=== PATIENT | female | born 1980 | race African-American/Black ===

== ENCOUNTER 2017-02-13 09:35 | Emergency (ER) | payer SELFPAY ==
[2017-02-13] MEDS ORDERED: ALBUTEROL SULFATE 0.083% NEB 2.5 MG/3 ML AMPUL NEB ONE (10:48)
--- NOTE | 2017-02-13 11:34 | ER Document Report ---
HPI - HPI Patient complains to provider of: cough, congestion and shortness of breath. Onset: Last week Onset/Duration: Gradual Quality of pain: Achy Severity: Moderate Pain Level: 3 Context: Patient states she started out with upper respiratory symptoms which have now settled into her chest for the last 3-4 days. She states she has been running a fever and has a frequent, productive cough at times. Patient quit smoking 3 weeks ago. Associated Symptoms: Nonproductive cough, Productive cough, Fever, Sinus pain/ drainage, Shortness of breath Exacerbated by: Coughing, Deep breathing Relieved by: Denies Similar symptoms previously: Yes Recently seen / treated by doctor: No - ROS ROS below otherwise negative: Yes Systems Reviewed and Negative: Yes All other systems reviewed and negative - CONSTITUTIONAL Constitutional: REPORTS: Fever - EENT EENT: REPORTS: Congestion - NEURO Neurology: REPORTS: Headache - CARDIOVASCULAR Cardiovascular: REPORTS: Chest pain - Only with coughing and de - RESPIRATORY Respiratory: REPORTS: Trouble Breathing, Coughing - GASTROINTESTINAL Gastrointestinal: DENIES: Abdominal Pain - URINARY Urinary: DENIES: Dysuria - REPRODUCTIVE LMP: 01/31/17 Reproductive: DENIES: : - MUSCULOSKELETAL Musculoskeletal: DENIES: Extremity pain - DERM Skin Color: Normal Skin Problems: None Past Medical History - General Information source: Patient - Social History Smoking Status: Former Smoker - Quit 3 weeks ago Frequency of alcohol use: Rare Drug Abuse: None Lives with: Family Family History: None Patient has suicidal ideation: No Patient has homicidal ideation: No - Medical History Medical History: Negative Surgical Hx: Negative Past Surgical History: Reports: Hx Tubal Ligation - Immunizations Hx Diphtheria, Pertussis, Tetanus Vaccination: Yes Vertical Provider Document - CONSTITUTIONAL Agree With Documented VS: Yes Exam Limitations: No Limitations General Appearance: WD/WN, No Apparent Distress - INFECTION CONTROL TRAVEL OUTSIDE OF THE [place] IN LAST 30 DAYS: No - HEENT HEENT: Atraumatic, Normocephalic. negative: Pharyngeal Erythema Notes: TMs dull - NECK Neck: Normal Inspection, Supple - RESPIRATORY Respiratory: No Respiratory Distress, Wheezing - Mild expiratory O2 Sat by Pulse Oximetry: 98 - CARDIOVASCULAR Cardiovascular: Regular Rate, Regular Rhythm - GI/ABDOMEN Gastrointestinal: Abdomen Soft, Abdomen Non-Tender, Normal Bowel Sounds - MUSCULOSKELETAL/EXTREMETIES Musculoskeletal/Extremeties: AISHA ALVARADO - NEURO Level of Consciousness: Awake, Alert, Appropriate - DERM Integumentary: Warm, Dry Course - Re-evaluation Re-evalutation: 02/13/17 11:35 X-ray was negative and results were discussed with patient. Patient states she is able to breathe much easier after nebulizer treatment. No wheezing heard on auscultation after treatment 02/13/17 12:32 - Vital Signs Vital signs: Temp Pulse Resp BP Pulse Ox 98.3 F 106 H 16 110/80 98 02/13/17 09:39 02/13/17 09:39 02/13/17 09:39 02/13/17 09:39 02/13/17 09:39 Discharge - Discharge Clinical Impression: Bronchitis Condition: Good Disposition: HOME, SELF-CARE Additional Instructions: Meds as prescribed Albuterol inhaler 2 puffs every 4 hours for 2 days, then every 4 hours as needed for cough. [id number] cough cold medications for symptom relief Push fluids Tylenol or Motrin as needed for fever Did not begin smoking again. Follow-up with your doctor if not better in 2-3 days, or return if worsens. Prescriptions: Albuterol Sulfate [Proair HFA] 1 - 2 puff IH Q4 PRN #1 inhaler PRN Reason: Azithromycin [Zithromax 250 mg Tablet] 250 mg PO ASDIR #6 tablet Prednisone [Deltasone 10 mg Tablet] 10 mg PO ASDIR #21 tablet Forms: Return to Work
[2017-02-13 11:59] VITALS: BP 128/82
== END 2017-02-13 11:56 | disposition home or self-care (01) ==
LOC: ER 09:35
DX: J40 Bronchitis, not specified as acute or chronic (principal); R05 Cough; R07.89 Other chest pain; R50.9 Fever, unspecified; J34.89 Other specified disorders of nose and nasal sinuses; R51 Headache; R06.2 Wheezing; Z87.891 Personal history of nicotine dependence
CPT/HCPCS: 71020; 99283

== ENCOUNTER 2018-01-31 07:35 | Emergency (ER) | payer SELFPAY ==
[2018-01-31] MEDS ORDERED: DEXAMETHASONE SOD PHOS INJ 10 MG/1 ML VIAL IV ONE (08:00)
[2018-01-31] MEDS ORDERED: NORMAL SALINE 1000 ML 1,000 ML IV ONE (08:00)
[2018-01-31] MEDS ORDERED: CLINDAMYCIN 600 MG/D5W RTU 600 MG/50 ML RTUPB IV ONE (08:00)
[2018-01-31] MEDS ORDERED: KETOROLAC TROMETHAMINE INJ/PF 30 MG/1 ML SDV IV ONE (08:00)
[2018-01-31] MEDS ORDERED: ACETAMINOPHEN 325 MG TABLET PO ONE (08:03)
--- NOTE | 2018-01-31 08:07 | ER Document Report ---
HPI - HPI Patient complains to provider of: Sore throat Onset: Other - 6 days Onset/Duration: Worse Quality of pain: Achy Pain Level: 4 Context: Patient reports sore throat for the past 6 days. Patient states she started to develop swelling to the back of her throat and right side of her neck 4 days ago. Patient reports fever and chills. She does report recent exposure to strep throat. Associated Symptoms: Earache, Fever, Sore throat. denies: Nonproductive cough, Productive cough, Vomiting Exacerbated by: Denies Relieved by: Denies Similar symptoms previously: No Recently seen / treated by doctor: No - ROS ROS below otherwise negative: Yes Systems Reviewed and Negative: Yes All other systems reviewed and negative - CONSTITUTIONAL Constitutional: REPORTS: Fever, Chills - EENT EENT: REPORTS: Sore Throat, Ear Pain. DENIES: Eye problems - NEURO Neurology: REPORTS: Headache. DENIES: Weakness, Vision blurred, Dizzinesss / Vertigo - CARDIOVASCULAR Cardiovascular: DENIES: Chest pain - RESPIRATORY Respiratory: DENIES: Coughing - GASTROINTESTINAL Gastrointestinal: DENIES: Abdominal Pain, Patient vomiting, Black / Bloody Stools - URINARY Urinary: DENIES: Dysuria, Urgency, Frequency - REPRODUCTIVE Reproductive: DENIES: : - MUSCULOSKELETAL Musculoskeletal: REPORTS: Neck Pain. DENIES: Extremity pain - DERM Skin Color: Normal Skin Problems: None Past Medical History - General Information source: Patient - Social History Smoking Status: Former Smoker Chew tobacco use (# tins/day): No Frequency of alcohol use: Occasional Drug Abuse: None Occupation: None Family History: None Patient has suicidal ideation: No Patient has homicidal ideation: No - Medical History Medical History: Negative Renal/ Medical History: Denies: Hx Peritoneal Dialysis Past Surgical History: Reports: Hx Tubal Ligation - Immunizations Hx Diphtheria, Pertussis, Tetanus Vaccination: Yes Vertical Provider Document - CONSTITUTIONAL Agree With Documented VS: Yes Exam Limitations: No Limitations General Appearance: WD/WN, No Apparent Distress - INFECTION CONTROL TRAVEL OUTSIDE OF THE [place] IN LAST 30 DAYS: No - HEENT HEENT: Atraumatic, Normocephalic, Pharyngeal Tenderness, Pharyngeal Erythema. negative: Pharyngeal Exudate Notes: Patient with right peritonsillar erythema and swelling, no potential airway compromise. No trismus at this time. Voice is subtly muffled - NECK Neck: Lymphadenopathy-Right - RESPIRATORY Respiratory: Breath Sounds Normal, No Respiratory Distress - CARDIOVASCULAR Cardiovascular: Regular Rhythm, No Murmur, Tachycardia - BACK Back: Normal Inspection - MUSCULOSKELETAL/EXTREMETIES Musculoskeletal/Extremeties: AISHA ALVARADO - NEURO Level of Consciousness: Awake, Alert, Appropriate Motor/Sensory: No Motor Deficit - DERM Integumentary: Warm, Dry, No Rash Course - Re-evaluation Re-evalutation: 01/31/18 09:54 [facility] Staff Nurse left a message with Dr. Esquivel for return call. 01/31/18 10:[address] Esquivel, reviewed patient's diagnostic report. Advises giving patient Unasyn 3 g IV here and discharging her with Augmentin 875 p.o. twice daily. Advises having her follow-up with her primary doctor for recheck as well as obtaining an outpatient thyroid ultrasound. Reviewing her CT report and having concerns about a possible thyroid nodule. States that patient can follow-up with his office for further evaluation of thyroid. - Vital Signs Vital signs: Temp Pulse Resp BP Pulse Ox 100.5 F H 118 H 17 133/78 H 99 01/31/18 07:40 01/31/18 07:40 01/31/18 07:40 01/31/18 07:40 01/31/18 07:40 - Laboratory Result Diagrams: 01/31/18 08:27 01/31/18 08:27 Laboratory results interpreted by me: 01/31/18 10:32 Labs- Entire Visit 01/31/18 01/31/18 01/31/18 08:27 08:27 08:27 WBC 18.3 H RBC 4.24 Hgb 10.7 L Hct 33.4 L MCV 79 L MCH 25.2 L MCHC 31.9 L RDW 18.1 H Plt Count 354 Seg Neutrophils % 78.6 H Lymphocytes % 13.0 Monocytes % 7.5 Eosinophils % 0.3 Basophils % 0.6 Absolute Neutrophils 14.4 H Absolute Lymphocytes 2.4 Absolute Monocytes 1.4 Absolute Eosinophils 0.0 Absolute Basophils 0.1 Sodium 144.4 Potassium 3.6 Chloride 102 Carbon Dioxide 30 Anion Gap 12 BUN 5 L Creatinine 0.55 Est GFR ( Amer) > 60 Est GFR (Non-Af Amer) > 60 Glucose 95 Lactic Acid Calcium 9.9 Group A Strep Rapid POSITIVE 01/31/18 08:27 WBC RBC Hgb Hct MCV MCH MCHC RDW Plt Count Seg Neutrophils % Lymphocytes % Monocytes % Eosinophils % Basophils % Absolute Neutrophils Absolute Lymphocytes Absolute Monocytes Absolute Eosinophils Absolute Basophils Sodium Potassium Chloride Carbon Dioxide Anion Gap BUN Creatinine Est GFR ( Amer) Est GFR (Non-Af Amer) Glucose Lactic Acid 1.0 Calcium Group A Strep Rapid 01/31/18 18:44 Labs- Entire Visit 01/31/18 01/31/18 01/31/18 08:27 08:27 08:27 WBC 18.3 H RBC 4.24 Hgb 10.7 L Hct 33.4 L MCV 79 L MCH 25.2 L MCHC 31.9 L RDW 18.1 H Plt Count 354 Seg Neutrophils % 78.6 H Lymphocytes % 13.0 Monocytes % 7.5 Eosinophils % 0.3 Basophils % 0.6 Absolute Neutrophils 14.4 H Absolute Lymphocytes 2.4 Absolute Monocytes 1.4 Absolute Eosinophils 0.0 Absolute Basophils 0.1 Sodium 144.4 Potassium 3.6 Chloride 102 Carbon Dioxide 30 Anion Gap 12 BUN 5 L Creatinine 0.55 Est GFR ( Amer) > 60 Est GFR (Non-Af Amer) > 60 Glucose 95 Lactic Acid Calcium 9.9 Group A Strep Rapid POSITIVE 01/31/18 08:27 WBC RBC Hgb Hct MCV MCH MCHC RDW Plt Count Seg Neutrophils % Lymphocytes % Monocytes % Eosinophils % Basophils % Absolute Neutrophils Absolute Lymphocytes Absolute Monocytes Absolute Eosinophils Absolute Basophils Sodium Potassium Chloride Carbon Dioxide Anion Gap BUN Creatinine Est GFR ( Amer) Est GFR (Non-Af Amer) Glucose Lactic Acid 1.0 Calcium Group A Strep Rapid - Diagnostic Test Radiology reviewed: Reports reviewed Discharge - Discharge Clinical Impression: Strep throat, Peritonsillar cellulitis Condition: Stable Disposition: HOME, SELF-CARE Instructions: Augmentin ([facility]), IV Antibiotics ([facility]), Sore Throat ([facility]), Tonsillitis ([facility]) Additional Instructions: Return immediately for any new or worsening symptoms Followup with your primary care provider, call tomorrow to make a followup appointment Dr. Esquivel reviewed your CT scan and had concerns about a possible nodule on your thyroid, he recommends that you see a primary doctor for further evaluation of the thyroid gland, and states that he should have an outpatient thyroid ultrasound. Your primary doctor can order this test for you. Prescriptions: Amox Tr/Potassium Clavulanate [Augmentin 875-125 Tablet] 1 tab PO BID 10 Days tablet Naproxen [Naprosyn 250 Nmg Tablet] 1 tab PO BID #14 tablet Referrals: [facility] [Provider Group] - Follow up tomorrow [facility] [Provider Group] - Follow up as needed PAOLA ESQUIVEL DO [ASSOCIATE] - Follow up as needed
[2018-01-31 08:47] LABS: ABSOLUTE BASOPHILS # (AUTO) 0.1 10^3/uL (0.0-0.2); ABSOLUTE LYMPHOCYTES (AUTO) 2.4 10^3/uL (0.5-4.7); ABSOLUTE MONOCYTES (AUTO) 1.4 10^3/uL (0.1-1.4); ABSOLUTE NEUT (AUTO) 14.4 10^3/uL (1.7-8.2); BASOPHILS % (AUTO) 0.6 % (0-2); EOSINOPHILS % (AUTO) 0.3 % (0-6); HEMATOCRIT 33.4 % (36.0-47.0); HEMOGLOBIN 10.7 g/dL (12.0-15.5); MEAN CORPUSCULAR HEMOGLOBIN 25.2 pg (27.0-33.4); MEAN CORPUSCULAR HGB CONC 31.9 g/dL (32.0-36.0); MEAN CORPUSCULAR VOLUME 79 fl (80-97); MONOCYTES % (AUTO) 7.5 % (3-13); PLATELET COUNT 354 10^3/uL (150-450); RED BLOOD COUNT 4.24 10^6/uL (3.72-5.28); RED CELL DISTRIBUTION WIDTH 18.1 % (11.5-14.0); SEGMENTED NEUTROPHILS % (AUTO) 78.6 % (42-78); TOTAL CELLS COUNTED % (AUTO) 100 %; WHITE BLOOD COUNT 18.3 10^3/uL (4.0-10.5)
[2018-01-31 09:07] LABS: ANION GAP 12 (5-19); BLOOD UREA NITROGEN 5 mg/dL (7-20); CALCIUM 9.9 mg/dL (8.4-10.2); CARBON DIOXIDE 30 mmol/L (22-30); CHLORIDE 102 mmol/L (98-107); GLUCOSE 95 mg/dL (75-110); POTASSIUM 3.6 mmol/L (3.6-5.0); SODIUM 144.4 mmol/L (137-145)
--- NOTE | 2018-01-31 09:35 | RADIOLOGY REPORT (SQ) ---
EXAM DESCRIPTION: CT SOFT TISSUE NECK WITH COMPLETED DATE/TIME: 01/31/2018 9:15 am REASON FOR STUDY: sore throat, ?abscess COMPARISON: None. TECHNIQUE: Post IV contrasted scanning from skull base through lung apices with review of bone, soft tissue and lung windows. Reconstructed coronal and sagittal MPR images reviewed. All images stored on PACS. All CT scanners at this facility use dose modulation, iterative reconstruction, and/or weight based d osing when appropriate to reduce radiation dose to as low as reasonably achievable (ALARA). [facility]: Dose Right [facility]: CareDose [facility]: Dose Right [facility]: Teradose 4D [facility]: [employer] CONTRAST TYPE AND DOSE: contrast/concentration: Isovue 370.00 mg/ml; Total Contrast Delivered: 74.0 ml; Total Saline Delivered: 55.0 ml RENAL FUNCTION: None required. The patient is less than 50 years old. RADIATION DOSE: CT Rad equipment meets quality standard of care and radiation dose reduction techniq ues were employed. CTDIvol: 16.5 mGy. DLP: 454 mGy-cm. . LIMITATIONS: None. FINDINGS: SKULL BASE: Intact. MAJOR SALIVARY GLANDS: No solid or cystic masses. No inflammatory changes. LYMPHADENOPATHY: Enlarged level 1, 2, 3, 4, 5 nodes, with the largest right jugulodigastric 2.3 x 2.1 cm in AP by transverse diameter. MUCOSAL MASSES OR ASYMMETRY: Enlarged palatine tonsils resulting in mild narrowing of the nasopharynx . Tiny gas bubble to right of midline measuring about 5 mm image 19. LARYNX/CORDS: No abnormal findings. VASCULAR STRUCTURES: The major vessels are patent. LUNG APICES: Clear. BONES: Intact. THYROID: Normal size. No masses. PARANASAL SINUSES: Clear. OTHER: No other significant finding. IMPRESSION: Tonsillitis with mild narrowing of the posterior nasopharynx. Phlegmon or tiny abscess right posterior pharyngeal wall. TECHNICAL DOCUMENTATION: JOB ID: [id number] Quality ID # [id number]: Final reports with documentation of one or more dose reduction techniques (e.g., Au tomated exposure control, adjustment of the mA and/or kV according to patient size, use of iterative reconstruction technique) 2010 [employer]- All Rights Reserved Reading location - IP/workstation name: [facility]
[2018-01-31] MEDS ORDERED: AMPICILLIN SOD/SULBACTAM 3 GM VIAL IV ONE (10:31)
[2018-01-31 11:27] VITALS: BP 113/74
== END 2018-01-31 11:29 | disposition home or self-care (01) ==
LOC: ER 07:35
DX: J02.0 Streptococcal pharyngitis (principal); J36 Peritonsillar abscess; R50.9 Fever, unspecified; H92.01 Otalgia, right ear; Z87.891 Personal history of nicotine dependence; Z98.51 Tubal ligation status
CPT/HCPCS: 99284; 96375; 96365; 96367; 36415; 87040; 87880; 83605; 85025; 80048; 70491; J0295; J1885; J7030; J1100

== ENCOUNTER 2019-08-09 05:21 | Emergency (ER) | payer SELFPAY ==
[2019-08-09] MEDS ORDERED: AMPICILLIN SOD/SULBACTAM 3 GM VIAL IV ONE (06:26)
[2019-08-09] MEDS ORDERED: DEXAMETHASONE SOD PHOS INJ 10 MG/1 ML VIAL IV ONE (06:26)
--- NOTE | 2019-08-09 06:34 | ER Document Report ---
ED General - General Chief Complaint: Sore Throat Stated Complaint: SORE THROAT Time Seen by Provider: 08/09/19 06:13 TRAVEL OUTSIDE OF THE [place] IN LAST 30 DAYS: No - HPI Notes: Patient is a 38-year-old female who presents emergency department for evaluation of sore throat. She states she started to have a sore throat on Sunday. She had fevers, some mild ear pain. She stated that things seem to be improving over Sunday. Over the last 36 hours, her symptoms are worsened. Her pain is worsened. Her fevers returned. She complains of pain primarily in her throat and her right ear. It is worsened by swallowing, nothing seems to make it better. She denies any respiratory difficulties. She states she has had a minimal cough but feels as if this is drainage. No nausea or vomiting. She is still drinking fluids, still urinating normally. - Related Data Allergies/Adverse Reactions: No Known Allergies Allergy (Verified 02/13/17 09:39) Home Medications: None Past Medical History - General Information source: Patient - Social History Smoking Status: Former Smoker Frequency of alcohol use: None Family History: Reviewed & Not Pertinent, Malignancy - Prostate cancer Patient has suicidal ideation: No Patient has homicidal ideation: No Renal/ Medical History: Denies: Hx Peritoneal Dialysis Past Surgical History: Reports: Hx Tubal Ligation - Immunizations Hx Diphtheria, Pertussis, Tetanus Vaccination: Yes Review of Systems - Review of Systems Constitutional: See HPI EENT: See HPI Cardiovascular: No symptoms reported Respiratory: No symptoms reported Gastrointestinal: No symptoms reported Genitourinary: No symptoms reported Musculoskeletal: No symptoms reported Skin: No symptoms reported Neurological/Psychological: No symptoms reported Physical Exam - Vital signs Vitals: Temp Pulse Resp BP Pulse Ox 98.3 F 117 H 16 124/79 100 08/09/19 05:29 08/09/19 05:29 08/09/19 05:29 08/09/19 05:29 08/09/19 05:29 - Notes Notes: Is a pleasant 38-year-old female who appears her stated age in no acute distress. She is having a garbled voice, clear difficulty speaking, but no respiratory distress. It is painful, but she is able to handle her own secretions. Vital signs reviewed, please refer to chart. Head is normocephalic, atraumatic. Pupils equal round, reactive to light. Posterior pharynx reveals erythema and edema without clear asymmetry of the tonsillar pillars. Neck is supple without meningismus. Heart is regular rate and rhythm. Lungs are clear to auscultation bilaterally. Abdomen is soft, nontender, normoactive bowel sounds throughout. Extremities without cyanosis, clubbing. Posterior calves are nontender. Peripheral pulses are equal. Skin is warm and dry. Patient is awake, alert, neurological exam is nonfocal. Course - Re-evaluation Re-evalutation: 08/09/19 06:34 Patient presents the emergency department for evaluation. I am significantly concerned about the possibility of an abscess in this patient with garbled voice. Laboratory investigations and cultures were obtained. Rapid strep ordered. She is given IV fluids, Unasyn. She is sent for CT scan of the neck with contrast, we will continue to monitor. 08/09/19 09:40 Laboratory investigations revealed a significant leukocytosis. Cultures pending. Rapid strep negative, but culture pending as well. Patient is feeling significantly improved, her voice improved. She was given IV Unasyn here. I will send her home with Augmentin and anti-inflammatories. She is told that if she has fever longer than 24 hours from now, vomiting, inability to swallow, or any other new or concerning symptoms, she needs to return immediately to the emergency department for reevaluation. She voiced understanding to this and was discharged. - Vital Signs Vital signs: Temp Pulse Resp BP Pulse Ox 98.3 F 117 H 16 124/79 100 08/09/19 05:29 08/09/19 05:29 08/09/19 05:29 08/09/19 05:29 08/09/19 05:29 - Laboratory Result Diagrams: 08/09/19 07:00 08/09/19 07:00 Laboratory results interpreted by me: 08/09/19 08/09/19 07:00 07:00 WBC 18.3 H Hgb 10.5 L Hct 33.2 L MCV 78 L MCH 24.6 L MCHC 31.5 L RDW 19.1 H Lymph % (Auto) 12.5 L Absolute Neuts (auto) 14.1 H Absolute Monos (auto) 1.8 H Potassium 3.3 L Total Protein 8.5 H - Diagnostic Test Radiology reviewed: Reports reviewed Radiology results interpreted by me: 08/09/19 09:[address] 08/09/19 06:27 IMPRESSION: Peritonsillar edema without focal abscess. Diffuse bilateral cervical adenopathy, likely reactive. Discharge - Discharge Clinical Impression: Peritonsillar cellulitis Condition: Stable Disposition: HOME, SELF-CARE Instructions: Sore Throat ([facility]), Tonsillitis ([facility]) Additional Instructions: Take medications as prescribed, preferably with food. If you develop increased difficulty swallowing, vomiting, fevers longer than 24 hours, or any other new or concerning symptoms of any sort, please return immediately to the emergency department for reevaluation. Otherwise follow-up with your doctor on Sunday.
[2019-08-09] MEDS: NORMAL SALINE 1000 ML 1,000 ML IV PRN ×2 (06:56→06:57)
[2019-08-09 07:22] LABS: ABSOLUTE BASOPHILS # (AUTO) 0.1 10^3/uL (0.0-0.2); ABSOLUTE LYMPHOCYTES (AUTO) 2.3 10^3/uL (0.5-4.7); ABSOLUTE MONOCYTES (AUTO) 1.8 10^3/uL (0.1-1.4); ABSOLUTE NEUT (AUTO) 14.1 10^3/uL (1.7-8.2); BASOPHILS % (AUTO) 0.5 % (0-2); EOSINOPHILS % (AUTO) 0.2 % (0-6); HEMATOCRIT 33.2 % (36.0-47.0); HEMOGLOBIN 10.5 g/dL (12.0-15.5); LYMPHOCYTES % (AUTO) 12.5 % (13-45); MEAN CORPUSCULAR HEMOGLOBIN 24.6 pg (27.0-33.4); MEAN CORPUSCULAR HGB CONC 31.5 g/dL (32.0-36.0); MEAN CORPUSCULAR VOLUME 78 fl (80-97); MONOCYTES % (AUTO) 9.6 % (3-13); PLATELET COUNT 359 10^3/uL (150-450); RED BLOOD COUNT 4.25 10^6/uL (3.72-5.28); RED CELL DISTRIBUTION WIDTH 19.1 % (11.5-14.0); SEGMENTED NEUTROPHILS % (AUTO) 77.2 % (42-78); TOTAL CELLS COUNTED % (AUTO) 100 %; WHITE BLOOD COUNT 18.3 10^3/uL (4.0-10.5)
[2019-08-09 07:40] LABS: ALBUMIN 4.1 g/dL (3.5-5.0); ALKALINE PHOSPHATASE 89 U/L (38-126); ANION GAP 14 (5-19); ASPARTATE AMINO TRANSFERASE 24 U/L (14-36); BILIRUBIN,DIRECT 0.3 mg/dL (0.0-0.4); BILIRUBIN,TOTAL 0.8 mg/dL (0.2-1.3); BLOOD UREA NITROGEN 11 mg/dL (7-20); CALCIUM 9.4 mg/dL (8.4-10.2); CARBON DIOXIDE 27 mmol/L (22-30); CHLORIDE 103 mmol/L (98-107); GLUCOSE 105 mg/dL (75-110); POTASSIUM 3.3 mmol/L (3.6-5.0); TOTAL PROTEIN 8.5 g/dL (6.3-8.2)
--- NOTE | 2019-08-09 08:44 | RADIOLOGY REPORT (SQ) ---
EXAM DESCRIPTION: CT SOFT TISSUE NECK WITH COMPLETED DATE/TIME: 08/09/2019 7:46 am REASON FOR STUDY: eval for abscess, sore throat COMPARISON: None. TECHNIQUE: Post IV contrasted scanning from skull base through lung apices with review of bone, soft tissue and lung windows. Reconstructed coronal and sagittal MPR images reviewed. All images stored on PACS. All CT scanners at this facility use dose modulation, iterative reconstruction, and/or weight based d osing when appropriate to reduce radiation dose to as low as reasonably achievable (ALARA). [facility]: Dose Right [facility]: CareDose [facility]: Dose Right [facility]: Teradose 4D [facility]: [employer] CONTRAST TYPE AND DOSE: Not recorded RENAL FUNCTION: None required. The patient is less than 50 years old. RADIATION DOSE: . LIMITATIONS: None. FINDINGS: SKULL BASE: Intact. MAJOR SALIVARY GLANDS: No solid or cystic masses. No inflammatory changes. LYMPHADENOPATHY: Diffuse bilateral cervical adenopathy. Likely reactive. MUCOSAL MASSES OR ASYMMETRY: Mild edema peritonsillar. There is no focal abscess or fluid collection . LARYNX/CORDS: No abnormal findings. VASCULAR STRUCTURES: The major vessels are patent. LUNG APICES: Clear. BONES: Intact. THYROID: Normal size. No masses. PARANASAL SINUSES: Clear. OTHER: No other significant finding. IMPRESSION: Peritonsillar edema without focal abscess. Diffuse bilateral cervical adenopathy, likely reactive. TECHNICAL DOCUMENTATION: JOB ID: [id number] Quality ID # [id number]: Final reports with documentation of one or more dose reduction techniques (e.g., Au tomated exposure control, adjustment of the mA and/or kV according to patient size, use of iterative reconstruction technique) 2010 [employer]- All Rights Reserved Reading location - IP/workstation name: [email or web address]
[2019-08-09 09:57] VITALS: BP 127/88
== END 2019-08-09 09:57 | disposition home or self-care (01) ==
LOC: ER 05:21
DX: J36 Peritonsillar abscess (principal); R50.9 Fever, unspecified; H92.01 Otalgia, right ear; R05 Cough; Z87.891 Personal history of nicotine dependence
CPT/HCPCS: 99283; 96361; 96374; 96375; 36415; 87040; 87070; 87880; 84703; 85025; 87077; 80053; 70491; J0295; J7030; J1100